=== PATIENT | male | born 1990 | race Caucasian/White ===

== ENCOUNTER 2023-12-05 10:56 | Emergency (ER) | payer OTHER ==
[2023-12-05 11:15] VITALS: BP 136/73; O2SAT 99
--- NOTE | 2023-12-05 11:27 | ED Physician Documentation ---
PD HPI UPPER EXT INJURY - Stated complaint Stated Complaint: RT SHOULDER INJ - Chief complaint Chief Complaint: Trauma Ext - History obtained from History obtained from: Patient - History of Present Illness Location: Right, Shoulder Type of injury: Fall Where injury occurred: Home Timing - onset: Yesterday Timing - duration: Hours Timing - details: Abrupt onset Improved by: Nothing Worsened by: Moving, Palpating Associated symptoms: No: Weakness, Numbness, Tingling, Swelling, Discolored Contributing factors: No: Anticoagulated, Prior ortho surgery, Prosthetic joint, Work related Similar symptoms before: Has not had sx before Recently seen: Not recently seen - Additonal information Additional information: 33-year-old male presents with right shoulder pain. He was diving for football yesterday and landed on the right shoulder. He heard a "crunch" and since then he has had some difficulty with range of motion. He has difficulty moving the arm away from the body or reaching overhead. The pain is primarily in the anterior part of the shoulder. He took naproxen without much relief. He has not attempted any other treatment. He denies any other injuries. Review of Systems Constitutional: reports: Reviewed and negative Eyes: reports: Reviewed and negative Ears: reports: Reviewed and negative Nose: reports: Reviewed and negative Throat: reports: Reviewed and negative Cardiac: reports: Reviewed and negative Respiratory: reports: Reviewed and negative GI: reports: Reviewed and negative Skin: reports: Reviewed and negative Musculoskeletal: reports: Extremity pain PD PAST MEDICAL HISTORY - Past Medical History Past Medical History: No - Past Surgical History Past Surgical History: No - Present Medications Home Medications: Ambulatory Orders Medication Instructions Recorded Confirmed Cyclobenzaprine [Flexeril] 10 mg PO TID PRN #20 tablet 12/05/23 Ibuprofen [Motrin] 600 mg PO Q6H PRN #30 tab 12/05/23 - Allergies Allergies/Adverse Reactions: Allergies Allergy/AdvReac Type Severity Reaction Status Date / Time amoxicillin Allergy Rash Verified 12/05/23 11:09 - Social History Does the pt smoke?: No Smoking Status: Never smoker Does the pt drink ETOH?: Yes Does the pt have substance abuse?: No - Immunizations Immunizations are current?: Yes PD ED PE NORMAL - Vitals Vital signs reviewed: Yes - General General: Alert and oriented X 3, No acute distress, Well developed/nourished - HEENT HEENT: Atraumatic, Moist mucous membranes - Neck Neck: Supple, no meningeal sign, No bony TTP, C-Spine cleared by NEXUS criteria - Cardiac Cardiac: RRR, No murmur - Respiratory Respiratory: No respiratory distress, Clear bilaterally - Derm Derm: Normal color, Warm and dry, No rash - Extremities Extremities: No deformity, Other (tender ant shoulder, pain w/ ext rotation, + impingement, weakness in external rotation) - Neuro Neuro: Alert and oriented X 3 Eye Opening: Spontaneous Motor: Obeys Commands Results - Vitals Vitals: Vital Signs - 24 hr 12/05/23 11:05 Temperature 36.0 C L Heart Rate 76 Respiratory 20 Rate Blood Pressure 136/73 H O2 Saturation 99 Oxygen O2 Source Room air - Rads (name of study) No standard instances Relevant Findings:: Final report received PD Medical Decision Making - ED course Complexity details: reviewed results, re-evaluated patient, considered differential, d/w patient, d/w family ED course: 33-year-old male presented with right shoulder pain after injury yesterday as described in HPI. On physical exam, there is no obvious deformity, no swelling, but patient has significant weakness with external rotation and limited range of motion due to pain, has positive impingement signs and I am concerned for a possible rotator cuff injury. We did obtain an x-ray to rule out fracture or dislocation and these were reassuring and he does not have signs of posterior dislocation on his physical exam. I therefore remain concerned about a possible rotator cuff injury. I discussed with patient that typically treatment at this point in time is supportive with pain control with Tylenol or ibuprofen, and I have also prescribed Flexeril for the patient, recommended cool compress and light range of motion activity. I will provide him with a sling but encouraged him to take his arm out several times throughout the day and do light range of motion activity to avoid frozen shoulder. Patient advised that he will likely need physical therapy and if no improvement in next week or 2 follow-up with PCP or orthopedics for MRI. Patient stable for discharge home at this time. Departure - Departure Disposition: 01 Home, Self Care Clinical Impression: Injury of shoulder, right Qualifiers: Encounter type: initial encounter Qualified Code(s): S49.91XA - Unspecified injury of right shoulder and upper arm, initial encounter Condition: Good Instructions: Rotator Cuff Injury Prescriptions: Cyclobenzaprine [Flexeril] 10 mg PO TID PRN #20 tablet PRN Reason: Spasms Ibuprofen [Motrin] 600 mg PO Q6H PRN #30 tab PRN Reason: Pain Comments: Your x-ray today is normal, there are no signs of broken bone or dislocation. You do have signs on exam of a possible rotator cuff injury. This is not something we can typically see on an xray. Treatment initially is supportive (ice, ibuprofen and tylenol, light range of motion activity) and physical therapy. If no improvement, you will need to follow up with your primary doctor or orthopedist to get an MRI. I have prescribed a muscle relaxer for you. Forms: PCP List Discharge Date/Time: 12/05/23 12:20
--- NOTE | 2023-12-05 11:43 | XRAY Report ---
PROCEDURE: Shoulder 2+V RT INDICATIONS: trauma TECHNIQUE: 3 views of the shoulder were acquired. COMPARISON: None FINDINGS: Bones: No fractures or dislocations. No suspicious bony lesions. Visualized ribs appear intact. Soft tissues: No suspicious soft tissue calcifications. IMPRESSION: Unremarkable shoulder radiographs. No fracture Reviewed by: Josué Healy MD on 12/05/2023 10:41 AM EMILY Approved by: Josué Healy MD on 12/05/2023 10:41 AM [place] Station ID: [id number]
== END 2023-12-05 12:20 | disposition home or self-care (01) ==
LOC: ED 10:56
DX: S49.91XA Unspecified injury of right shoulder and upper arm, initial encounter (principal); W19.XXXA Unspecified fall, initial encounter; Y93.61 Activity, american tackle football
CPT/HCPCS: 99283